=== PATIENT | female | born 1945 ===

== ENCOUNTER 2016-12-19 11:01 | Outpatient (CLI) | payer MEDICARE ==
--- NOTE | ~2016-12-19 | HEMODYNAMI ---
PATIENT:SHERIE LYNNE MEDICAL RECORD: [id number] : 47 LOCATION:[facility] D.2116 ADMISSION DATE: 12/19/16 Generatedon:12/20/201610:15 Patient name: SHERIE LYNNE Patient #: [id number] SSN: DO B: 1945 Date of study: 12/20/2016 Page: Of Hemodynamic Procedure Report Patient Data Patient Demographics Procedure consent was obtained First Name: SHERIE Gender: Female Last Name: GUERA : 1945 Patient #: [id number] Age: 71 year(s) Race: Unknown Additional ID: [id number] Contact details Address: [address] [place] [address] State: [place] City: [place] Zip code: [address] Admission Admission Data Admission Date: 12/19/2016 Admission Time: 12:47 Room #: D.2116 Lab Results Lab Result Date: 12/20/2016 Lab Result Time: 0:00 Biochemistry Name Units Result Min Max BUN mg/dl 7 --(*---)-- 7 18 Creatinine mg/dl 0.5 -*(----)-- 0.6 1.3 CBC Name Units Result Min Max Hemoglobin g/dl 13.3 -*(----)-- 13.5 17.5 Procedure Procedure Types Cath Procedure PCI Procedure Coronary Stent Initial Miscellaneous Procedures Moderate Sedation up to 15 minutes Procedure Description Procedure Date Procedure Date: 12/20/2016 Procedure Start Time: 10:00 Procedure End Time: 10:15 Procedure Staff Name Function Emile Lancaster MD Performing Physician Sara Agosto RT Scrub Ameya Elena RN Nurse Dario Hall RT Monitor Procedure Data Cath Procedure Fluoroscopy Diagnostic fluoroscopy Total fluoroscopy Time: 4.8 time: 4.8 min min Diagnostic fluoroscopy Total fluoroscopy dose: 313 dose: 313 mGy mGy Contrast Material Contrast Material Type Amount (ml) Isovue 300 86 Entry Location Entry Primary Successful Side Size Upsize Upsize Entry Closure Succes sful Closure Location (Fr) 1 (Fr) 2 (Fr) Remarks Device Remarks Femoral Left 6 Fr Exoseal artery Short Estimated blood loss: 10 ml Procedure Complications No complications Procedure Medications Medication Administration Route Dosage 0.9% NaCl I.V. 100 ml/hr Oxygen NC 2 l/min Heparin Flush Bag added to field 2 bags (1000units/500ml NS) Lidocaine 2% added to field 20 Versed I.V. 2 mg Fentanyl I.V. 50 mcg Fentanyl I.V. 50 mcg Heparin Bolus I.V. 4000 units Hemodynamics Rest HGB: 13.3 (g/dl) Heart Rate: 70 (bpm) Snapshots Pre Cath Intra NCS Post Cath Vital Signs Time Heart Resp SPO2 etCO2 NIBP (mmHg) Rhythm Pain Sedation Rate (ipm) (%) (mmHg) Status Level (bpm) 9:49:02 68 16 96 0 131/66(100) NSR 0 (11) 10(A) , No pain 9:53:42 69 19 96 0 121/62(88) NSR 0 (11) 10(A) , No pain 9:58:21 66 23 95 0 113/61(85) NSR 0 (11) 10(A) , No pain 10:03:02 64 16 96 0 112/58(86) NSR 0 (11) 10(A) , No pain 10:07:40 67 17 95 0 114/60(84) NSR 0 (11) 10(A) , No pain 10:12:21 70 13 95 0 117/62(86) NSR 0 (11) 10(A) , No pain Medications Time Medication Route Dose Verified Delivered Reason Notes Effectiveness by by 9:52:33 0.9% NaCl I.V. 100 Ameya Ameya Per physician ml/hr Ulices Elena RN RN 9:52:46 Oxygen NC 2 Ameya Ameya Per physician l/min Ulices Elena RN RN 9:53:00 Heparin Flush added 2 Ameya Ameya used for Bag to bags Ulices Elena procedure (1000units/500ml field KYARA SPARROW NS) 9:53:15 Lidocaine 2% added 20ml Ameya Ameya for local to vial Ulices Elena anesthetic field KYARA SPARROW 9:53:30 Versed I.V. 2 mg Ameya Ameya for sedation Ulices Elena RN, RN 9:55:32 Fentanyl I.V. 50 Ameya Ameya for sedation rosa Elena RN RN 10:00:50 Fentanyl I.V. 50 Ameya Ameya for sedation rosa Elena RN RN 10:03:44 Heparin Bolus I.V. 4000 Ameya Ameya for units Ulices Elena anticoagulation RN gas maker helper Log Time Note 9:25:32 Dario Hall RT(R) sent for patient. Start room use. 9:27:35 Time tracking: Regular hours 9:27:39 Plan of Care:Hemodynamics will remain stable., Cardiac rhythm will remain stable., Comfort level will be maintained., Respiratory function will remain adequate., Patient/ family verbilizes understanding of procedure., Procedure tolerated without complication., Recovers from procedure without complications.. 9:28:03 H&P Date Dictated: 12/19/2016 Within 30 days and on chart., H&P Addendum completed by physician on day of procedure. (MUST COMPLETE FOR ALL OUTPATIENTS). 9:29:34 Lab Result : Creatinine 0.5 mg/dl 9:29:34 Lab Result : BUN 7 mg/dl 9:29:34 Lab Result : Hemoglobin 13.3 g/dl 9:38:01 Patient received from Med II to CCL 1 Alert and oriented. Tansferred to table in Supine position. 9:38:03 Warm blankets applied, and frances hugger turned on for patient comfort. 9:38:03 Correct patient and procedure confirmed by team. 9:38:05 Signed procedure consent form obtained from patient. 9:38:06 ECG and BP/O2 sat monitors applied to patient. 9:48:10 Vital chart was started 9:48:12 Baseline sample Acquired. 9:48:15 Rhythm: sinus rhythm 9:48:16 Full Disclosure recording started 9:48:18 Pre-procedure instructions explained to patient. 9:48:19 Pre-op teaching completed and patient verbalized understanding. 9:48:23 Family in patients room. 9:48:24 Patient NPO since Midnight. 9:48:26 Is the patient allergic to Iodine/contrast media? No. 9:48:29 Is patient on blood thinner?Yes 9:48:32 ACC The patient was administered the following blood thiners within the last 24 hours: ACCPlavix 9:48:34 Patient diabetic? No. 9:49:17 Previous problem with sedation/anesthesia? No ? 9:49:20 Snore? Yes 9:49:23 Sleep apnea? No 9:49:24 Deviated septum? No 9:49:25 Opens mouth fully? Yes 9:50:35 Sticks out tongue? Yes 9:50:37 Airway obstruction? No ? 9:50:40 Dentures? No ? 9:50:51 Pre procedure: left dorsailis pedis pulse 1+ Palpable, but thready & weak; easily obliterated 9:51:02 Patient pain scale 0/10 ?. 9:51:11 IV patent on arrival in left forearm with 0.9% NaCl at [facility]. 9:51:13 Lab results completed and on chart. 9:51:18 Left groin area was prepped with chlora-prep and draped in sterile fashion 9:51:19 Alarms reviewed by R. N. 9:51:20 Sharps counted by scrub and verified by R.N. 9:51:22 --------ALL STOP TIME OUT------ 9:51:22 Final Timeout: patient, procedure, and site verified with staff and physician. All members of the team are in agreement. 9:51:24 Left groin site verified by team. 9:51:27 Physical assessment completed. ASA score P 2 - A patient with mild systemic disease as per Emile Lancaster MD. 9:51:29 Sedation plan: IV Moderate Sedation Versed, Fentanyl 9:52:33 0.9% NaCl 100 ml/hr I.V. was administered by Ameya Elena RN; Per physician; 9:52:46 Oxygen 2 l/min NC was administered by Ameya Elena RN; Per physician; 9:53:00 Heparin Flush Bag (1000units/500ml NS) 2 bags added to field was administered by Ameya Elena RN; used for procedure; 9:53:15 Lidocaine 2% 20ml vial added to field was administered by Ameya Elena RN; for local anesthetic; 9:53:27 Use device set Femoral PCI 9:53:28 Tegaderm 4 x 4 opened to sterile field. 9:53:28 Acist Manifold opened to sterile field. 9:53:30 Versed 2 mg I.V. was administered by Ameya Lorigan RN; for sedation; 9:53:30 Acist Syringe opened to sterile field. 9:53:30 Acist Hand Control opened to sterile field. 9:53:31 Bag Decanter opened to sterile field. 9:53:31 Medline Cath Pack opened to sterile field. 9:53:31 Terumo 6Fr Chelsea Sheath opened to sterile field. 9:53:32 St Rogers 260cm J .035 wire opened to sterile field. 9:53:32 Merit BasixCompak Inflation Kit opened to sterile field. 9:53:38 Durant Whisper J 300cm 0.014 guide wire opened to sterile field. 9:55:32 Fentanyl 50 mcg I.V. was administered by Ameya Elena RN; for sedation; 9:55:57 Cordis 6FR XB 3.5 guide catheter opened to sterile field. 10:00:00 Procedure started. 10:00:05 Local anesthetic to left femerol artery with Lidocaine 2% by Emile Lancaster MD.INITIAL ACCESS ONLY 10:00:50 Fentanyl 50 mcg I.V. was administered by Ameya Elena RN; for sedation; 10:01:21 A 6 Fr Short sheath was inserted into the Left Femoral artery 10:01:50 Study PCI Site: [facility] has 80% stenosis. 10:01:53 ACC Pre-intervention REBECCA Flow is 3. 10:02:00 6 Fr XB 3.5 guide catheter was inserted over the wire 10:02:38 Whisper wire advanced. 10:03:44 Wire advanced across lesion. 10:03:44 Heparin Bolus 4000 units I.V. was administered by Ameya Elena RN; for anticoagulation; 10:06:41 The Medtronic Integrity 2.25 X 14 stent was advanced then removed because of failure to cross lesion 10:08:17 Inflation number: 1 A Euphora 2.0 x 12 Balloon was prepped and advanced across the Dist CX, then inflated to 13 LOUIS for 0:10 (min:sec). 10:08:50 Multiple inflations made at 13 Atms. 10:09:20 Balloon removed over the wire. 10:10:01 Inflation Number: 2 A Medtronic Integrity 2.25 X 14 stent was prepped and advanced across the Dist CX. The stent was deployed at 21 LOUIS for 0:10 (min:sec). 10:10:40 Stent catheter was removed intact over wire. 10:10:42 Wire removed. 10:10:42 Guide catheter removed. 10:10:44 ACC Post-intervention REBECCA Flow is 3. 10:10:56 Cordis 6Fr Exoseal opened to sterile field. 10:11:05 Sheath removed intact; hemostasis achieved with Exoseal to the Left Femoral artery. 10:11:35 Procedure ended.(Physican Out) 10:12:44 Fluoroscopy time 04.80 minutes. 10:12:47 Fluoroscopy dose: 313 mGy 10:12:47 Flurop Dose total: 313 10:12:52 Contrast amount:Isovue 300 86ml. 10:12:53 Sharps counted by scrub and verified by R.N. 10:12:55 Insertion/operative site no bleeding no hematoma. 10:12:57 Post Procedure Pulses reassessed and unchanged 10:12:59 Post-procedure physical assessment completed. ASA score P 2 - A patient with mild systemic disease as per Emile Lancaster MD. 10:13:02 Post procedure rhythm: unchanged. 10:13:05 Estimated blood loss: 10 ml 10:13:07 Post procedure instruction explained to patient.Patient verbalizes understanding. 10:13:08 Patient needs reinforcement of post procedure teaching. 10:13:33 Procedure and supply charges have been captured, reviewed, submitted and are correct. 10:13:35 Procedure Complication : No complications 10:15:06 Vital chart was stopped 10:15:07 See physician's report for complete and final results. 10:15:09 Report given to PCU. 10:15:13 Patient transfered to PCU with Bed. 10:15:16 Procedure ended. 10:15:16 Full Disclosure recording stopped 10:15:18 End room use (Document Last) 10:15:18 End room use (Document Last) Intervention Summary Intervention Notes Time ActionType Lesion and Equipment Action# Pressure Duration Attributes Used 10:06:41 Discard Medtronic Stent Integrity 2.25 X 14 stent 10:08:17 Inflate Dist CX Euphora 1 13 00:10 balloon 2.0 x 12 Balloon 10:10:01 Place stent Dist CX Medtronic 2 21 00:10 Integrity 2.25 X 14 stent Device Usage Item Name Manufacture Quantity Catalog Hospital Part Current Minimal L ot# / Number Charge Number Stock Stock Serial# Code Tegade 4 1 1626 133441 [id number] [id number] 5 x 4 Acist Acist 1 70958 612393 533734 032276 5 Manifold [employer] Inc Acist Acist 1 29232 688101 214820 675511 20 Syringe Medical Systems Inc Acist Hand Acist 1 96455 995360 527186 201691 5 Control Medical Systems Inc Bag Microtek 1 2002S 632501 92761 378760 5 Decanter Medical Inc. Medline Cardinal 1 [id number] 491355 29773 527575 5 Cath Pack Health Terumo 6Fr Terumo 1 [id number] 513484 541428 276051 [address] Rogers 1 248494 920612 394859 926477 30 260cm J .035 wire Merit Merit 1 [id number] 570904 833349 213129 15 BasixCompak Medical Inflation Kit Durant Durant 1 [id number] 511054 424746 788163 5 Whisper J Vascular 300cm 0.014 guide wire Cordis 6FR Cardinal 1 [id number] 776264 113638 095261 2 XB 3.5 Health guide catheter Medtronic Medtronic 1 [id number] 394418 105248 1 0 [id number] Integrity 2.25 X 14 stent Euphora 2.0 Medtronic 1 [id number] 775339 564072 534785 5 2 [id number] x 12 Balloon Cordis 6Fr Cardinal 1 EX600 614907 417041 338854 10 [facility] [place] Interactive Signature Audit [place] Stage Time Signature Unsigned Intra-Procedure 12/20/2016 Dario Hall 10:15:35 AM RT(R) Signatures Monitor : Dario Hall RT Signature : Date : Time : [facility] [address] [place] [address]
--- NOTE | ~2016-12-19 | HEMODYNAMI ---
PATIENT:SHERIE LYNNE MEDICAL RECORD: [id number] : 47 LOCATION:D.ER ADMISSION DATE: 12/19/16 Generatedon:12/19/201612:41 Patient name: SHERIE LYNNE Patient #: [id number] SSN: DO B: 1945 Date of study: 12/19/2016 Page: Of Hemodynamic Procedure Report Patient Data Patient Demographics Procedure consent was obtained First Name: SHERIE Gender: Female Last Name: GUERA : 1945 Patient #: [id number] Age: 71 year(s) Race: Unknown Additional ID: [id number] Admission Admission Data Admission Date: 12/19/2016 Admission Time: 11:01 Procedure Procedure Types Cath Procedure Diagnostic Procedure C [facility] w/Coronaries FFR/IVUS Intra-Coronary IVUS Initial PCI Procedure Coronary Stent Initial Miscellaneous Procedures Moderate Sedation up to 15 minutes Procedure Description Procedure Date Procedure Date: 12/19/2016 Procedure Start Time: 12:17 Procedure End Time: 12:38 Procedure Staff Name Function Emile Lancaster MD Performing Physician Sara Agosto RT Scrub Ameya Elena RN Nurse Dario Hall RT Monitor Procedure Data Cath Procedure Fluoroscopy Diagnostic fluoroscopy Total fluoroscopy Time: 3.8 time: 3.8 min min Diagnostic fluoroscopy Total fluoroscopy dose: 486 dose: 486 mGy mGy Contrast Material Contrast Material Type Amount (ml) Isovue 300 85 Entry Location Entry Primary Successful Side Size Upsize Upsize Entry Closure Succes sful Closure Location (Fr) 1 (Fr) 2 (Fr) Remarks Device Remarks Femoral Right 5 Fr 6 Fr Exoseal artery Short Estimated blood loss: 10 ml Diagnostic catheters Device Type Used For End Catheter Placement Cordis 5Fr Pigtail Procedure Catheter (MP) Cordis 5Fr JL 4.0 Procedure Catheter (MP) Cordis 5Fr 3DRC Catheter Procedure (MP) Procedure Complications No complications Procedure Medications Medication Administration Route Dosage 0.9% NaCl I.V. 100 ml/hr Oxygen NC 2 l/min Heparin Flush Bag added to field 2 bags (1000units/500ml NS) Lidocaine 2% added to field 20 Versed I.V. 2 mg Fentanyl I.V. 100 mcg Versed I.V. 1 mg Heparin Bolus 4000 units Integrilin (Bolus I.V. 6.8 ml 2mg/ml) Plavix P.O. 600 mg Versed I.V. 1 mg Hemodynamics Rest Heart Rate: 81 (bpm) Pressure Samples Time Site Value (mmHg) Purpose Heart Use Rate(bpm) 12:29 AO 113/66(88) Snapshot 89 Snapshots Pre Cath Intra NCS Post Cath Vital Signs Time Heart Resp SPO2 etCO2 NIBP (mmHg) Rhythm Pain Sedation Rate (ipm) (%) (mmHg) Status Level (bpm) 12:11:45 87 24 99 0 139/69(119) NSR 0 (11) 10(A) , No pain 12:16:26 83 20 98 0 128/71(95) NSR 0 (11) 10(A) , No pain 12:21:04 86 23 98 0 115/67(90) NSR 0 (11) 10(A) , No pain 12:25:43 88 16 97 0 118/63(91) NSR 0 (11) 10(A) , No pain 12:30:21 83 16 98 0 118/64(90) NSR 0 (11) 10(A) , No pain 12:35:00 88 23 98 0 126/64(97) NSR 0 (11) 10(A) , No pain Medications Time Medication Route Dose Verified Delivered Reason Notes Effectiveness by by 12:09:58 0.9% NaCl I.V. 100 Ameya Ameya Per physician ml/hr Ulices Elena RN, RN 12:10:11 Oxygen NC 2 Ameya Ameya Per physician l/min Ulices Elena RN RN 12:10:28 Heparin Flush added 2 Ameya Ameya used for Bag to bags Ulices Elena procedure (1000units/500ml field KYARA SPARROW NS) 12:10:42 Lidocaine 2% added 20ml Ameya Ameya for local to vial Ulices Elena anesthetic field KYARA SPARROW 12:14:16 Versed I.V. 2 mg Ameya Ameya for sedation Ulices Elena RN, RN 12:14:27 Fentanyl I.V. 100 Ameya Ameya for sedation mcg Lorigan Lorigan RN RN 12:18:07 Versed I.V. 1 mg Ameya Ameya for sedation Ulices Elena RN RN 12:24:08 Heparin Bolus 4000 Ameya Ameya for units Ulices Elena anticoagulation RN RN 12:24:30 Integrilin I.V. 6.8 Ameya Ameya for (Bolus 2mg/ml) ml Ulices Elena antiplatelet RN RN therapy 12:33:26 Plavix P.O. 600 Ameya Ameya for mg Ulices Elena antiplatelet RN RN therapy 12:36:00 Versed I.V. 1 mg Ameya Ameya for sedation Ulices Elena RN metal refiner Log Time Note 11:50:48 Dario Hall RT(R) sent for patient. Start room use. 11:50:50 Time tracking: Regular hours 11:50:54 Plan of Care:Hemodynamics will remain stable., Cardiac rhythm will remain stable., Comfort level will be maintained., Respiratory function will remain adequate., Patient/ family verbilizes understanding of procedure., Procedure tolerated without complication., Recovers from procedure without complications.. 12:04:46 Patient received from ED to CCL 1 Alert and oriented. Tansferred to table in Supine position. 12:04:48 Warm blankets applied, and frances hugger turned on for patient comfort. 12:04:48 Correct patient and procedure confirmed by team. 12:04:50 Signed procedure consent form obtained from patient. 12:04:51 ECG and BP/O2 sat monitors applied to patient. 12:09:58 0.9% NaCl 100 ml/hr I.V. was administered by Ameya Elena RN; Per physician; 12:10:11 Oxygen 2 l/min NC was administered by Ameya Elena RN; Per physician; 12:10:28 Heparin Flush Bag (1000units/500ml NS) 2 bags added to field was administered by Ameya Elena RN; used for procedure; 12:10:42 Lidocaine 2% 20ml vial added to field was administered by Ameya Elena RN; for local anesthetic; 12:10:52 Vital chart was started 12:11:49 Rhythm: sinus rhythm 12:11:50 Full Disclosure recording started 12:11:54 H&P Date Dictated: 12/19/2016 ER History on chart.. 12:11:55 Pre-procedure instructions explained to patient. 12:11:55 Pre-op teaching completed and patient verbalized understanding. 12:11:57 Family in waiting room. 12:11:59 Patient NPO since Midnight. 12:12:00 Is the patient allergic to Iodine/contrast media? No. 12:12:09 Is patient on blood thinner?No 12:12:10 Patient diabetic? No. 12:12:19 Previous problem with sedation/anesthesia? No ? 12:12:20 Snore? Yes 12:12:45 Sleep apnea? No 12:12:46 Deviated septum? No 12:12:50 Opens mouth fully? Yes 12:12:51 Sticks out tongue? Yes 12:12:55 Airway obstruction? No ? 12:13:01 Dentures? No ? 12:13:10 Pre procedure: right dorsailis pedis pulse 1+ Palpable, but thready & weak; easily obliterated 12:13:14 Patient pain scale 0/10 ?. 12:13:35 IV patent on arrival in left forearm with 0.9% NaCl at [facility]. 12:13:37 Lab results completed and on chart. 12:13:40 Right groin area was prepped with chlora-prep and draped in sterile fashion 12:13:42 Alarms reviewed by R. N. 12:13:42 Sharps counted by scrub and verified by R.N. 12:13:43 --------ALL STOP TIME OUT------ 12:13:43 Final Timeout: patient, procedure, and site verified with staff and physician. All members of the team are in agreement. 12:13:46 Right groin site verified by team. 12:13:50 Physical assessment completed. ASA score P 2 - A patient with mild systemic disease as per Emile Lancaster MD. 12:13:54 Sedation plan: IV Moderate Sedation Versed, Fentanyl 12:14:16 Versed 2 mg I.V. was administered by Ameya Elena RN; for sedation; 12:14:27 Fentanyl 100 mcg I.V. was administered by Ameya Elena RN; for sedation; 12:16:45 Use device set Femoral Dx 12:16:47 Tegaderm 4 x 4 opened to sterile field. 12:16:48 Acist Hand Control opened to sterile field. 12:16:48 Acist Manifold opened to sterile field. 12:16:50 Acist Syringe opened to sterile field. 12:16:50 Bag Decanter opened to sterile field. 12:16:51 Medline Cath Pack opened to sterile field. 12:16:51 Terumo 5Fr Plessis Sheath opened to sterile field. 12:16:51 St Rogers 260cm J .035 wire opened to sterile field. 12:16:53 Diagnostic Infinity 5Fr Multipack catheter opened to sterile field. 12:16:59 Zero performed for pressure channel P1 12:17:03 Zero performed for pressure channel P1 12:17:10 Baseline sample Acquired. 12:17:25 Procedure started. 12:17:31 Local anesthetic to right femoral artery with Lidocaine 2% by Emile Lancaster MD.INITIAL ACCESS ONLY 12:18:07 Versed 1 mg I.V. was administered by Ameya Elena RN; for sedation; 12:18:12 A 5 Fr sheath was inserted into the Right Femoral artery 12:18:21 A Cordis 5Fr Pigtail Catheter (MP) was advanced over the wire and used for Procedure. 12:18:46 LV angiography performed. 12:18:48 LV gram done using CALABRESE 12:18:53 EF : 70 % 12:18:59 Injector settings: Ml/sec: 10, Volume: 20, 12:19:00 Catheter removed. 12:19:05 A Cordis 5Fr JL 4.0 Catheter (MP) was advanced over the wire and used for Procedure. 12:19:58 LCA angiography performed. 12:20:03 Merit BasixCompak Inflation Kit opened to sterile field. 12:20:03 Terumo 6Fr Plessis Sheath opened to sterile field. 12:20:04 Durant Whisper J 300cm 0.014 guide wire opened to sterile field. 12:20:35 Catheter removed. 12:20:38 A Cordis 5Fr 3DRC Catheter (MP) was advanced over the wire and used for Procedure. 12:21:05 RCA angiography performed. 12:21:07 Catheter removed. 12:21:13 Cordis 6FR XBLAD 3.5 guide catheter opened to sterile field. 12:21:27 Pierson [place] Eagleye IVUS Catheter opened to sterile field. 12:21:35 Sheath upsized to a 6 Fr Short. 12:21:46 6 Fr XBLAD 3.5 guide catheter was inserted over the wire 12:23:37 Whisper wire advanced. 12:24:01 Wire advanced across lesion. 12:24:08 Heparin Bolus 4000 units was administered by Ameya Elena RN; for anticoagulation; 12::08 IVUS catheter advanced over wire. 12::30 Integrilin (Bolus 2mg/ml) 6.8 ml I.V. was administered by Ameya Elena RN; for antiplatelet therapy; 12:24:56 IVUS pass to LAD lesion performed. 12::31 IVUS catheter removed over wire. 12::35 Inflation Number: 1 A Brand Embassytronic Integrity 3.5 X 12 stent was prepped and advanced across the Prox LAD. The stent was deployed at 11 LOUIS for 0:10 (min:sec). 12:30:20 Inflation number: 2 The stent balloon was then re-inflated across the Prox LAD to 3 LOUIS for 0:10 (min:sec). 12::37 Stent catheter was removed intact over wire. 12::38 Wire removed. 12:30:40 Guide catheter removed. 12::48 Sheath removed intact; hemostasis achieved with Exoseal to the Right Femoral artery. 12:31: Cordis 6Fr Exoseal opened to sterile field. 12:31:27 Procedure ended.(Physican Out) 12::38 Fluoroscopy time 03.80 minutes. 12:: Flurop Dose total: 486 12:: Fluoroscopy dose: 486 mGy 12::46 Contrast amount:Isovue 300 85ml. 12:33:26 Plavix 600 mg P.O. was administered by Ameya Elena RN; for antiplatelet therapy; 12:36:00 Versed 1 mg I.V. was administered by Ameya Elena RN; for sedation; 12:36:28 Sharps counted by scrub and verified by R.N. 12:36:31 Insertion/operative site no bleeding no hematoma. 12:36:34 Post-op/insertion site Right Femoral artery dressed using a 4 x 4 and Tegaderm. 12:36:36 Post Procedure Pulses reassessed and unchanged 12:36:39 Post-procedure physical assessment completed. ASA score P 2 - A patient with mild systemic disease as per Emile Lancaster MD. 12:36:42 Post procedure rhythm: unchanged. 12:36:45 Estimated blood loss: 10 ml 12:36:55 Post procedure instruction explained to patient.Patient verbalizes understanding. 12:36:56 Patient needs reinforcement of post procedure teaching. 12:37:15 Procedure type changed to Cath procedure, Diagnostic procedure, LHC, LHC w/Coronaries, FFR/IVUS, Intra-Coronary IVUS Initial, PCI procedure, Coronary Stent Initial, Miscellaneous Procedures, Moderate Sedation up to 15 minutes 12:37:19 Procedure and supply charges have been captured, reviewed, submitted and are correct. 12:37:24 Procedure Complication : No complications 12:38:00 Vital chart was stopped 12:38:01 See physician's report for complete and final results. 12:38:08 Report given to PCU. 12:38:12 Patient transfered to PCU with Bed. 12:38:14 Procedure ended. 12:38:14 Full Disclosure recording stopped 12:38:33 End room use (Document Last) Intervention Summary Intervention Notes Time ActionType Lesion and Equipment Action# Pressure Duration Attributes Used 12:28:35 Place stent Prox LAD Medtronic 1 11 00:10 Integrity 3.5 X 12 stent 12:30:20 Reinflate Prox LAD Medtronic 2 3 00:10 stent Integrity balloon 3.5 X 12 stent Device Usage Item Name Manufacture Quantity Catalog Hospital Part Current Minimal L ot# / Number Charge Number Stock Stock Serial# Code Tegaderm 4 3M 1 [id number] 207140 5 x 4 Acist Hand Acist 1 13626 592152 675997 355897 5 Control Medical Systems Inc Acist Acist 1 50899 673389 099090 747509 5 Manifold Medical Systems Inc Acist Acist 1 29348 627195 212871 751069 20 Syringe Medical Systems Inc Bag Microtek 1 2002S 075120 02043 310764 5 DecAlkeus Pharm[employer] Medical Inc. Medline Cardinal 1 [id number] 538041 89465 750173 5 Cath Pack Health Terumo 5Fr Terumo 1 [id number] 133245 732726 531678 [address] Rogers 1 175456 095451 594955 747405 30 260cm J .035 wire Diagnostic Cardinal 1 [id number] 458819 00897 895346 30 Infinity Health 5Fr Multipack catheter Cordis 5Fr Cardinal 1 297287 5 Pigtail Health Catheter (MP) Cordis 5Fr Cardinal 1 042019 5 JL 4.0 Health Catheter (MP) Merit Merit 1 [id number] 051793 400870 407169 15 BasixCompak Medical Inflation Kit Terumo 6Fr Terumo 1 OFI961 083714 399978 922396 40 Plessis Sheath Durant Durant 1 [id number] 171139 151041 978517 5 Whisper J Vascular 300cm 0.014 guide wire Cordis 5Fr Cardinal 1 833420 5 3DRC Health Catheter (MP) Cordis 6FR Cardinal 1 [id number] 357765 520110 106931 10 XBLAD 3.5 Health guide catheter Pierson Pierson 1 [id number] 671312 314202 165089 8 [place] Eagleye IVUS Catheter Medtronic Medtronic 1 [id number] 823696 645591 1 0 [id number] Integrity 3.5 X 12 stent Cordis 6Fr Cardinal 1 EX600 100343 121834 982414 10 [facility] [employer]o [employer] Butcher Signature Audit [place] Stage Time Signature Unsigned Intra-Procedure 12/19/2016 Dario Hall 12:41:20 PM RT(R) Signatures Monitor : Dario Hall RT Signature : Date : Time : [facility] [address] [facility] [place] [address]
[2016-12-19 11:24] LABS: BASOPHILS 0.2 % (0-2); EOSINOPHILS 0.6 % (0-7); HEMATOCRIT 38.8 % (36.0-48.0); HEMOGLOBIN 13.3 g/dL (12-16); IMMATURE GRANULOCYTES 0.2 % (0-5); LYMPHOCYTES 37.4 % (15-50); MCH 30.5 pg (26.0-34.0); MCHC 34.3 g/dL (31.0-37.0); MONOCYTES 5.7 % (2-11); NEUTROPHILS 55.9 % (40-80); PLATELET COUNT 217 10x3/uL (130-400); RBC 4.36 10x6/uL (4.00-5.40); WBC 8.1 10x3/uL (4.8-10.8)
[2016-12-19 11:46] LABS: ALBUMIN 3.9 g/dL (3.4-5.0); ALKALINE PHOSPHATASE 61 U/L (46-116); ALT (SGPT) 21 U/L (10-68); BILIRUBIN - TOTAL 0.52 mg/dL (0.2-1.3); CALC OSMOLALITY 269 mosm/kg (275-300); CALCIUM 9.2 mg/dL (8.5-10.1); CHLORIDE - SERUM 100 mmol/L (98-107); CREATININE - SERUM 0.5 mg/dL (0.6-1.3); GLUCOSE 96 mg/dL (74-106); POTASSIUM - SERUM 4.9 mmol/L (3.5-5.1); PROTEIN - SERUM 8.3 g/dL (6.4-8.2); SODIUM 136 mmol/L (136-145); UREA NITROGEN 7 mg/dL (7-18); eGFR NON AFRICAN AMERICAN > 90 mL/min (90-120)
[2016-12-19 11:57] LABS: CHOL - HDL RATIO 2.5 ratio (2.3-4.1); CHOLESTEROL, TOTAL 178 mg/dL (0-200); CKMB 1.3 U/L (0.0-3.6); CREATINE KINASE 190 UL (21-215); HDL CHOLESTEROL 70 mg/dL (32-96); LDL CHOLESTEROL 81 mg/dL (0-100); LDL-HDL RATIO 1.2 ratio (1.5-3.5); TRIGLYCERIDE 137 mg/dL (30-200)
[2016-12-19 12:03] LABS: TROPONIN-I < 0.017 ng/mL (0.000-0.060)
--- NOTE | 2016-12-19 13:21 | NUR ---
TRANSFER FROM [facility]. VS WNL. RIGHT GROIN STABLE WITHOUT BLEEDING OR HEMATOMA NOTED. WILL MONITOR.
[2016-12-19] MEDS ORDERED: LOTREL 10/20 CA1 CAP PO (13:50)
[2016-12-19] MEDS ORDERED: NEXIUM40 MG PO (13:50)
[2016-12-19] MEDS ORDERED: NIASPAN500 MG PO (13:52)
[2016-12-19] MEDS ORDERED: OMEPRAZOLE20 M1 PO (13:52)
[2016-12-19 13:54] VITALS: BP 126/71; BMI 26.0
--- NOTE | 2016-12-19 13:59 | NUR ---
BED REST UP. GROIN STABLE.
[2016-12-19 16:00] VITALS: BP 120/65
--- NOTE | 2016-12-19 17:00 | NUR ---
BED REST UP. GROIN STABLE.
--- NOTE | 2016-12-19 20:15 | NUR ---
REC'D AWAKE ON BEDSIDE ROUNDS, VOICING NO COMPLAINTS. INITIAL ASSESSMENT JUST COMPL AND RECORDED PER FLOW SHEET, ALL WNL. LEFT WRIST PIV, PATENT, SALINE LOCKED, SITE CLEAR OF REDNESS OR EDEMA. R GROIN WITH DRSG PATENT, NO SIGNS OF BLEEDING OR BRUISING. PPP. WILL CONT TO MONITOR.
[2016-12-19 20:37] VITALS: BP 132/72
[2016-12-19 23:45] VITALS: BP 136/68
--- NOTE | 2016-12-20 00:39 | NUR ---
NO CHANGES IN INITIAL ASSESSMENT. IS LYING QUIETLY AT PRESENT. DENIES NEEDS OF PAIN, NO SIGNS OF DISTRESS OR DISCOMFORT. WILL CONT TO MONITOR.
[2016-12-20 03:53] VITALS: BP 150/70
--- NOTE | 2016-12-20 06:14 | NUR ---
HAS RESTED THROUGHOUT NIGHT WITHOUT C/O'S OF PAIN, UP AROUND 4AM TO TAKE A HIBICLENS BATH SINCE SHE WAS AWAKE. TO HAVE ANOTHER CATH THIS A.M. SO WAS PREPPING. PIV REMAINS PATENT, WILL CONT WITH CURRENT PLAN OF CARE.
[2016-12-20 08:00] VITALS: BP 125/71
--- NOTE | 2016-12-20 09:29 | NUR ---
PRE-OPS GIVEN. LEAVING FOR REGULATORY TECHNICIAN BY BED.
[2016-12-20] MEDS ORDERED: PLAVIX75 MG PO (10:37)
--- NOTE | 2016-12-20 10:38 | NUR ---
BACK FROM [facility] RN. VS WNL. LEFT GROIN STABLE WITHOUT BLEEDING OR HEMATOMA NOTED. WILL MONITOR.
--- NOTE | 2016-12-20 11:00 | NUR ---
FOR DISCHARGE: PATIENT REQUESTING FLU SHOT WHEN ASKED. ORDERED. PER PATIENT REQUEST, PLAVIX 75 MG #30 1 DAILY WITH 1 REFILL CALLED TO [facility] IN [place] ([phone]). SPOKE WITH ENEDELIA PHARMACIST.
[2016-12-20 12:00] VITALS: BP 125/64
--- NOTE | 2016-12-20 15:13 | NUR ---
BED REST UP. GROIN STABLE. IV AND TELEMETRY DCD. DC PLANS GIVEN. UNSTANDING VOICED. ESCORTED TO CAR BY W/C.
--- NOTE | 2017-01-05 16:56 | DS ---
PATIENT:SHERIE LYNNE :47 MEDICAL RECORD: [id number] DISCHARGE SUMMARY ADMISSION DATE: 12/19/16 DISCHARGE DATE: 12/20/16 DATE OF SERVICE: 12/20/2016 DIAGNOSES: 1. Angina. 2. Coronary artery disease. 3. PTCA and stent of left circumflex and RCA this admission. HOSPITAL COURSE: Ms. Lynne presents with unstable angina. Found to have 2-vessel coronary artery disease of the left circumflex and RCA. Underwent successful PTCA and stent of above territories. Had an uneventful postoperative course. Discharged with the addition of aspirin and Plavix to her medical regimen. Follow up with [facility] in 1 month. TRANSINT:[id number] Voice Confirmation ID: [id number] DOCUMENT ID: [id number] BEL LEA MD at 1656 CC: [id number] DICTATION DATE: 12/20/16 1015 PLASTERING CONTRACTOR: 12/20/16 1439 DEP CLI 12/20/16 [id number] [place] [address]
--- NOTE | 2017-01-05 16:56 | OP ---
PATIENT NAME: SHERIE LYNNE MEDICAL RECORD: [id number] :47 LOCATION:D.OPS ADMISSION DATE: SURGEON: BEL LEA MD DATE OF OPERATION: 12/19/2016 PROCEDURES: 1. PTCA stent to LAD. 2. Left heart catheterization. 3. Selective coronary angiography. 4. Intravascular ultrasound. 5. Left ventriculogram. INDICATION: Angina and coronary artery disease. PROCEDURE IN DETAIL: After informed consent was obtained and after detailed explanation of risks, benefits as well as alternative therapies, the patient elected to proceed with angiogram and angioplasty. The right femoral area was prepped and draped in normal sterile fashion. The right femoral artery was cannulated via modified Seldinger technique with placement of 6-Bangladeshi sheath. All catheters exchanged through this sheath. FINDINGS: The left ventriculogram was performed in standard 30-degree CALABRESE view, reveals good cardiac wall motion throughout all segments. Overall ejection fraction 65% to 70%. SELECTIVE CORONARY ANGIOGRAPHY: 1. Left main showed no significant angiographic disease. 2. Left anterior descending has a 75% stenosis in the mid vessel confirmed by intravascular ultrasound. 3. Left circumflex is a dominant vessel with an 80% to 90% stenosis in the distal vessel. 4. Right coronary is small, nondominant. PTCA STENT OF THE LAD: The stent used is a 3.5 x 12 mm Integrity. Result was 0% residual stenosis. OVERALL IMPRESSION: Successful percutaneous transluminal coronary angioplasty stent of the left anterior descending going from 75% initial stenosis to 0% residual stenosis. PLAN: PTCA stent of the left circumflex in the near future. TRANSINT:[id number] Voice Confirmation ID: [id number] DOCUMENT ID: [id number] BEL LEA MD at 1656 CC: [id number] DICTATION DATE: 12/19/16 1234 CARROTING MACHINE OPERATOR: 12/19/16 1346 DEP CLI 12/20/16 [id number] [place] [address]
--- NOTE | 2017-01-05 16:56 | CN ---
PATIENT NAME:SHERIE LYNNE MEDICAL RECORD: [id number] : 47 LOCATION:D.OPS ADMIT DATE: ACCOUNT: [id number] CONSULTING PHYSICIAN: BEL LEA MD REFERRING PHYSICIAN: ANJEL RADER MD DATE OF CONSULTATION: 12/19/2016 ADMITTING DIAGNOSES: 1. Angina. 2. Hypertension. 3. GERD. HISTORY OF PRESENT ILLNESS: Mrs. Lynne presents with increasing episodes of chest pain and chest discomfort. Initially, she was attributing this to her GERD; however, the chest pain has become more cardiac like in nature. She presented to Dr. Fallon's office with this with increasing episodes of chest pain. She was made an appointment to see myself as a new patient next week; however, she continues to have the episodes of chest pain, they have worsened. They are now associated with shortness of breath, fatigue, diaphoresis. She presents to the Emergency Room with this. She has no acute changes on EKG. She continues to have the episodic chest discomfort. PHYSICAL EXAMINATION: GENERAL APPEARANCE: Well-nourished, well-developed, appears stated age. Level of distress, comfortable. PSYCHIATRIC: Mental status, alert, normal affect. Orientation, oriented to time, place and person. EYES: Lids and conjunctiva, noninjected. No discharge, no pallor. ENT: Lips, teeth, gums, normal dentition. Oropharynx, no cyanosis, no pallor. NECK: Carotid arteries, bilateral normal upstroke, no bruits, no thrills. JUGULAR VEINS: No jugular venous pressure or distention. CERVICAL LYMPH NODES: Nontender, nonenlarged. THYROID: Not enlarged. Nontender. No nodules. LUNGS: Respiratory effort, unlabored. CHEST: Normal curvature. No thoracic deformity. No chest wall tenderness. Percussion, resonant. Auscultation, clear. No wheezes, no rales, no rhonchi. CARDIOVASCULAR: Precordial exam, nondisplaced. No heaves or pericardial thrills. Rate and rhythm, regular. Heart sounds, normal S1, normal S2. No S3, no gallop, no rub. Systolic murmur, not heard. Diastolic murmur, not heard. EXTREMITIES: No cyanosis, no edema. Peripheral pulses, full and equal in all extremities, except as noted. No bruits appreciated. ABDOMEN: Soft, nondistended. Normal aorta. No bruit. Nontender. No masses. Liver, nontender, no hepatomegaly. Spleen, nontender, no splenomegaly. MUSCULOSKELETAL: No joint tenderness. No joint swelling. No erythema. NEUROLOGICAL: Normal gait, normal strength, normal tone. SKIN: Warm and dry. REVIEW OF SYSTEMS: The patient reports easy bruising but reports no swollen glands. The patient reports no fever, no night sweats, no significant weight gain, no significant weight loss. No significant exercise tolerance. The patient reports no dry eyes, no irritation, no vision change. Patient reports no difficulty hearing and no ear pain. Patient reports no frequent nose bleeds or nose and sinus problems. Patient reports on arm pain on exertion. No shortness of breath while lying down. No history of heart murmur. Patient reports no cough, no wheezing or coughing up blood. Patient reports no CONSULT REPORT [id number] ELEAZAR LYNNELYN abdominal pain, no vomiting. Normal appetite. No diarrhea and not vomiting blood. No nausea and no constipation. Patient reports no incontinence. No difficulty urinating. No hematuria. No increased frequency. Patient reports no muscle aches. No weakness, no arthralgias, no back pain. No swelling of the extremities. Patient reports no abnormal mole, no jaundice, no rashes. Reports no loss of consciousness. No weakness and no numbness. No seizures, dizziness, or headaches. The patient reports no depression, no sleep disturbance, feeling safe in a relationship and no alcohol abuse. Patient reports on fatigue. Reports no runny nose or sinus pressure. No itching, no hives, and no frequent sneezing. OVERALL IMPRESSION: Chest discomfort in an escalating unstable fashion. We will proceed with coronary angiography. Further care depends upon findings of the angiography. TRANSINT:[id number] Voice Confirmation ID: [id number] DOCUMENT ID: [id number] BEL LEA MD at 1656 CC: [id number] DICTATION DATE: 12/19/16 1145 COSMETOLOGY EDUCATOR: 12/19/16 1205 DEP CLI 12/20/16 [id number] [place] [address]
--- NOTE | 2017-01-05 16:56 | OP ---
PATIENT NAME: SHERIE LYNNE MEDICAL RECORD: [id number] :47 LOCATION:VERENA ADMISSION DATE: SURGEON: BEL LEA MD DATE OF OPERATION: 12/20/2016 PROCEDURES: 1. PTCA stent left circumflex. 2. Selective coronary angiography. INDICATION: Angina and coronary artery disease. PROCEDURE IN DETAIL: After informed consent was obtained and after a detailed explanation of the risks, benefits as well as alternative therapies, the patient elected to proceed with angiogram and angioplasty. The right femoral area was prepped and draped in normal sterile fashion. The right femoral artery was cannulated via modified Seldinger technique with placement of 6-Latvian sheath. All catheters exchanged through this sheath. FINDINGS: The left circumflex has a 90% to 95% stenosis. This was addressed with a 2.25 x 14 mm Integrity stent. Result was 0% residual stenosis. OVERALL IMPRESSION: Successful percutaneous transluminal coronary angioplasty stent of the left circumflex going from 90% to 95% initial stenosis to 0% residual. TRANSINT:[id number] Voice Confirmation ID: [id number] DOCUMENT ID: [id number] BEL LEA MD at 1656 CC: [id number] DICTATION DATE: 12/20/16 1016 PANEL MACHINE TENDER: 12/20/16 1043 [facility] CLI 12/20/16 [id number] [place] [address]
== END 2016-12-20 15:29 | disposition home or self-care (01) ==
LOC: OBSVTIME → D.M2 11:01 → D.OPS 11:01 → D.ER 11:01 → D.M2 12:46 → D.ER 12:46 → D.M2 12:47 → OBSVTIME 12:47 → D.OPS 12:47 → D.M2 12-20 15:29
PROVIDERS: Emergency Medicine
DX: I25.119 Atherosclerotic heart disease of native coronary artery with unspecified angina pectoris (principal); K21.9 Gastro-esophageal reflux disease without esophagitis; I10 Essential (primary) hypertension

== ENCOUNTER 2018-01-04 09:48 | Outpatient (CLI) | payer MEDICARE ==
[~2018-01-04] VITALS: Ht 167.6 cm; Wt 72.7 kg
--- NOTE | ~2018-01-04 | OP ---
PATIENT NAME: SHERIE LYNNE MEDICAL RECORD: [id number] :47 LOCATION:D.CAT ADMISSION DATE: SURGEON: BEL LEA MD DATE OF OPERATION: 01/04/2018 PROCEDURES: 1. PTCA stent left circumflex. 2. Intravascular ultrasound of left circumflex. 3. Intravascular ultrasound LAD. 4. Left heart catheterization. 5. Selective coronary angiography. 6. Left ventriculogram. INDICATION: Angina and coronary artery disease. PROCEDURE IN DETAIL: After informed consent was obtained and after a detailed description of the risks, benefits as well as alternative therapies, the patient elected to proceed with angiogram and angioplasty. The right femoral area was prepped and draped in normal sterile fashion. Right femoral artery was cannulated via modified Seldinger technique with placement of 6-Ukrainian sheath. All catheters exchanged through this sheath. FINDINGS: Left ventriculogram was performed in standard 30-degree CALABRESE view, reveals good cardiac wall motion throughout all segments. Overall ejection fraction estimated 55%. SELECTIVE CORONARY ANGIOGRAPHY: 1. Left main is with no significant angiographic disease. 2. Left anterior descending has a previously placed stent. Intravascular ultrasound reveals that this is widely patent. 3. The left circumflex has a greater than 70% stenosis in the mid vessel confirmed by intravascular ultrasound. 4. The right coronary artery has mild irregularities, but no flow-limiting stenosis. PTCA STENT OF THE LEFT CIRCUMFLEX: The stent used was a 4.0 x 18 mm Integrity. Result was 0% residual stenosis. OVERALL IMPRESSION: Successful percutaneous transluminal coronary angioplasty stent of the left circumflex going from greater than 70% initial stenosis to 0% residual. TRANSINT:[id number] Voice Confirmation ID: [id number] DOCUMENT ID: [id number] BEL LEA MD at 1034 CC: [id number] DICTATION DATE: 01/04/18 1440 PAINT STRIPPER: 01/04/18 1452 [facility] [address] [id number]
--- NOTE | ~2018-01-04 | HEMODYNAMI ---
PATIENT:SHERIE LYNNE MEDICAL RECORD: [id number] : 47 LOCATION:[facility]SE [facility] ADMISSION DATE: 01/04/18 Generatedon:01/04/201814:41 Patient name: SHERIE LYNNE Patient #: [id number] SSN: DO B: 1945 Date of study: 01/04/2018 Page: Of Hemodynamic Procedure Report Patient Data Patient Demographics Procedure consent was obtained First Name: SHERIE Gender: Female Last Name: GUERA : 1945 Patient #: [id number] Age: 72 year(s) Race: Unknown Additional ID: [id number] Contact details Address: [address] [place] [address] State: [place] City: [place] Zip code: [address] Past Medical History Allergies: No known allergies Admission Admission Data Admission Date: 01/04/2018 Admission Time: 9:48 Admit Source: Other Lab Results Lab Result Date: 01/04/2018 Lab Result Time: 10:40 Biochemistry Name Units Result Min Max BUN mg/dl 12 --(-*--)-- 7 18 Creatinine mg/dl 0.6 --(*---)-- 0.6 1.3 CBC Name Units Result Min Max Hematocrit % 36.6 *-(----)-- 42 54 Hemoglobin g/dl 12.4 *-(----)-- 13.5 17.5 Procedure Procedure Types Cath Procedure Diagnostic Procedure [facility] w/Coronaries FFR/IVUS Intra-Coronary IVUS Initial Intra-Coronary IVUS Additional PCI Procedure Coronary Stent Coronary Stent Initial Procedure Description Procedure Date Procedure Date: 01/04/2018 Procedure Start Time: 14:19 Procedure End Time: 14:40 Procedure Staff Name Function Emile Lancaster MD Performing Physician Erick Whitaker RT Monitor Sara Agosto RT Scrub Ellie Salazar RN Nurse Procedure Data Cath Procedure Fluoroscopy Diagnostic fluoroscopy Total fluoroscopy Time: 2.7 time: 2.7 min min Diagnostic fluoroscopy Total fluoroscopy dose: 373 dose: 373 mGy mGy Contrast Material Contrast Material Type Amount (ml) Isovue 300 66 Entry Location Entry Primary Successful Side Size Upsize Upsize Entry Closure Succes sful Closure Location (Fr) 1 (Fr) 2 (Fr) Remarks Device Remarks Femoral Right 5 Fr 6 Fr Exoseal artery Short Estimated blood loss: 10 ml Diagnostic catheters Device Type Used For End Catheter Placement MULTIPACK Pigtail 5 Fr Procedure catheter MULTIPACK JL 4.0 5Fr Procedure catheter MULTIPACK 3DRC 5Fr Procedure catheter Procedure Complications No complications Procedure Medications Medication Administration Route Dosage 0.9% NaCl I.V. 100 ml/hr Oxygen etCO2 Nasal cannula 2 l/min Lidocaine 2% added to field 20 Heparin Flush Bag added to field 2 bags (1000units/500ml NS) Versed I.V. 2 mg Fentanyl I.V. 50 mcg Versed I.V. 2 mg Fentanyl I.V. 50 mcg Heparin Bolus I.V. 4000 units Integrilin (Bolus 6.8 ml 2mg/ml) Plavix P.O. 600 mg Hemodynamics Rest HGB: 12.4 (g/dl) Heart Rate: 63 (bpm) Snapshots Pre Cath Intra NCS Post Cath Vital Signs Time Heart Resp SPO2 etCO2 NIBP Rhythm Pain Sedation Rate (ipm) (%) (mmHg) (mmHg) Status Level (bpm) 14:06:12 76 15 96 27 117/67(95) NSR 0 (11) 10(A) , No pain 14:10:26 59 16 96 25.6 99/53(76) NSR 0 (11) 10(A) , No pain 14:14:40 60 17 96 26.3 100/53(81) NSR 0 (11) 10(A) , No pain 14:18:52 57 15 97 27.8 100/50(77) NSR 0 (11) 10(A) , No pain 14:23:08 61 19 96 28 103/49(81) NSR 0 (11) 9(A) , No pain 14:27:24 62 16 96 28 98/47(74) NSR 0 (11) 9(A) , No pain 14:31:36 66 17 97 29 100/55(76) NSR 0 (11) 9(A) , No pain 14:35:50 63 21 96 30 112/53(88) NSR 0 (11) 10(A) , No pain 14:39:49 0 No Cuff NSR 0 (11) 10(A) , No pain Medications Time Medication Route Dose Verified Delivered Reason Notes Effectiveness by by 14:11:28 0.9% NaCl I.V. 100 Emile Ellie used for ml/hr Tonny Salazar customer sales service manager 14:11:35 Oxygen etCO2 2 Emile Ellie used for Nasal l/min Tonny Salazar procedure cannula RN 14:11:40 Lidocaine 2% added 20ml Emile Emile for local to vial Tonny Lancaster MD anesthetic field 14:11:47 Heparin Flush added 2 Emile Emile used for Bag to bags Tonny Lancaster MD procedure (1000units/500ml field NS) 14:15:46 Versed I.V. 2 mg Emile Ellie for sedation Tonny Salazar RN 14:15:55 Fentanyl I.V. 50 Emile Fallyla for sedation mcg Tonny Salazar RN 14:20:22 Versed I.V. 2 mg Emile Fallyla for sedation Tonny Salazar RN 14:20:27 Fentanyl I.V. 50 Emile Ellie for sedation mcg Tonny Salazar RN 14:23:44 Heparin Bolus I.V. 4000 Emile Fallyla for verif ied units Tonny Salazar anticoagulation with Dr. KYARA Lancaster 14:25:07 Integrilin 6.8 Emile Ellie for waste d (Bolus 2mg/ml) ml Tonny Salazar anticoagulation 3.2 mL RN 14:28:12 Plavix P.O. 600 Emile Argueta for mg Tonny Salazar antiplatelet RN therapy Procedure Log Time Note 13:45:48 Diagnostic Cath status Elective 13:45:52 Ellie Salazar RN sent for patient. Start room use. 13:54:02 Informed consent obtained and on chart 13:54:05 Admit Source: Other 13:54:57 Time tracking: Regular hours (M-F 7:00 - 5:00) 13:55:00 Plan of Care:Hemodynamics will remain stable., Cardiac rhythm will remain stable., Comfort level will be maintained., Respiratory function will remain adequate., Patient/ family verbilizes understanding of procedure., Procedure tolerated without complication., Recovers from procedure without complications.. 13:55:08 H&P Date Dictated: 01/01/2018 Within 30 days and on chart., H&P Addendum completed by physician on day of procedure. (MUST COMPLETE FOR ALL OUTPATIENTS). 13:58:27 Patient received from Pre/Post Procedure Room to CCL 1 Alert and oriented. Tansferred to table in Supine position. 13:58:29 Warm blankets applied, and frances hugger turned on for patient comfort. 13:58:29 Correct patient and procedure confirmed by team. 13:58:30 ECG and BP/O2 sat monitors applied to patient. 13:58:33 Pre-procedure instructions explained to patient. 13:58:34 Pre-op teaching completed and patient verbalized understanding. 13:58:35 Family in waiting room. 13:58:37 Patient NPO since Midnight. 13:58:44 Patient allergic to No known allergies 13:59:15 Lab Result : Creatinine 0.6 mg/dl 13:59:15 Lab Result : BUN 12 mg/dl 13:59:15 Lab Result : Hematocrit 36.6 % 13:59:15 Lab Result : Hemoglobin 12.4 g/dl 13:59:17 Lab results completed and on chart. 14:05:04 Vital chart was started 14:09:32 Baseline sample Acquired. 14:09:37 Rhythm: sinus rhythm 14:09:39 Full Disclosure recording started 14:09:41 Is the patient allergic to Iodine/contrast media? No. 14:09:54 Is patient on blood thinner?No 14:09:55 Patient diabetic? Yes. 14:09:56 If diabetic: On Metformin? Yes 14:09:59 If on Metformin: Last Dose? 01/02/2018 14:10:03 Previous problem with sedation/anesthesia? No ? 14:10:04 Snore? Yes 14:10:04 Sleep apnea? No 14:10:05 Deviated septum? No 14:10:06 Opens mouth fully? Yes 14:10:06 Sticks out tongue? Yes 14:10:07 Airway obstruction? No ? 14:10:10 Dentures? No ? 14:10:18 Pre procedure: right dorsailis pedis pulse 2+ Normal; easily identifiable; not easily obliterated 14:10:20 Patient pain scale 0/10 ?. 14:10:26 IV patent on arrival in left wrist with 0.9% NaCl at O. 14:10:35 Right groin area was prepped with chlora-prep and draped in sterile fashion 14:10:37 Alarms reviewed by R. N. 14:10:37 Sharps counted by scrub and verified by R.N. 14:10:39 Use device set Femoral Dx 14:10:40 Bag Decanter (2002) opened to sterile field. 14:10:41 ACIST Syringe (58272) opened to sterile field. 14:10:41 Medline Cath Pack ([id number]) opened to sterile field. 14:10:42 ACIST Manifold (33984) opened to sterile field. 14:10:43 ACIST Hand Control (66782) opened to sterile field. 14:10:43 DIAGNOSTIC Multipack 5Fr catheter set (RO7035) opened to sterile field. 14:10:44 Tegaderm 4 x 4 (1626W) opened to sterile field. 14:10:45 SHEATH Prelude 5Fr 0.035 (FYC-5V-74-035) opened to sterile field. 14:10:46 DIAGNOSTIC WIRE .035 260cm J wire (502529) opened to sterile field. 14:11:28 0.9% NaCl 100 ml/hr I.V. was administered by Ellie Salazar RN; used for procedure; 14:11:35 Oxygen 2 l/min etCO2 Nasal cannula was administered by Ellie Salazar RN; used for procedure; 14:11:40 Lidocaine 2% 20ml vial added to field was administered by Emile Lancaster MD; for local anesthetic; 14:11:47 Heparin Flush Bag (1000units/500ml NS) 2 bags added to field was administered by Emile Lancaster MD; used for procedure; 14:12:17 Zero performed for pressure channel P1 14:15:06 --------ALL STOP TIME OUT------ 14:15:07 Final Timeout: patient, procedure, and site verified with staff and physician. All members of the team are in agreement. 14:15:23 Right groin site verified by team. 14:15:40 Physical assessment completed. ASA score P 2 - A patient with mild systemic disease as per Emile Lancaster MD. 14:15:46 Versed 2 mg I.V. was administered by Ellie Salazar RN; for sedation; 14:15:46 Sedation plan: IV Moderate Sedation Medication:Versed, Fentanyl 14:15:55 Fentanyl 50 mcg I.V. was administered by Ellie Salazar RN; for sedation; 14:18:33 Procedure started. 14:19:10 Local anesthetic to right femoral artery with Lidocaine 2% by Emile Lancaster MD.INITIAL ACCESS ONLY 14:19:25 A 5 Fr sheath was inserted into the Right Femoral artery 14:19:35 Zero performed for pressure channel P1 14:20:22 Versed 2 mg I.V. was administered by Ellie Salazar RN; for sedation; 14::27 Fentanyl 50 mcg I.V. was administered by Ellie Salazar RN; for sedation; 14:20:34 A MULTIPACK Pigtail 5 Fr catheter was advanced over the wire and used for Procedure. 14:20:50 LV gram done using CALABRESE 14::54 Injector settings: Ml/sec: 10, Volume: 20, 14:20:55 LV hemodynamics recorded. 14:20:59 EF : 50 % 14:21:01 Catheter exchanged over wire. 14:21:09 A MULTIPACK JL 4.0 5Fr catheter was advanced over the wire and used for Procedure. 14:21:31 LCA angiography performed. 14:21:35 Catheter exchanged over wire. 14:22:34 RCA angiography performed. 14:23:44 Heparin Bolus 4000 units I.V. was administered by Ellie Salazar RN; for anticoagulation; verified with Dr. Lancaster 14:25:00 Sheath upsized to a 6 Fr Short. 14:25:07 Integrilin (Bolus 2mg/ml) 6.8 ml was administered by Ellie Salazar RN; for anticoagulation; wasted 3.2 mL 14:25:16 Catheter removed. 14:25:17 INFLATOR Merit BasixCompak (TP4879) opened to sterile field. 14:25:18 [place] IVUS Catheter (21735V) opened to sterile field. 14:25:29 SHEATH 6FR [place] (YVJ459) opened to sterile field. 14:25:35 GUIDE 6FR XBC 3.5 (68080037) opened to sterile field. 14:25:43 CHOICE PT Extra Support 182cm wire ([id number]) opened to sterile field. 14:25:50 6 Fr xbc3.5 guide catheter was inserted over the wire 14:25:54 chocie pt es wire advanced. 14:25:59 IVUS catheter advanced over wire. 14:26:28 IVUS pass to LAD lesion performed. 14::29 IVUS catheter removed over wire. 14::43 Wire redirected to cx. 14::53 Wire advanced across lesion. 14:28:11 IVUS catheter advanced over wire. 14:28:12 Plavix 600 mg P.O. was administered by Ellie Salazar RN; for antiplatelet therapy; 14:28:13 IVUS pass to Circ lesion performed. 14:28:14 IVUS catheter removed over wire. 14:28:32 Place stent Inflation Number: 1 A INTEGRITY 4.0 x 18 stent ([id number]) was prepped and advanced across the Prox CX. The stent was deployed at 15 [place] for 0:10 (min:sec). 14:33:44 EXOSEAL 6Fr (EX600) opened to sterile field. 14:33:49 A MULTIPACK 3DRC 5Fr catheter was advanced over the wire and used for Procedure. 14:33:58 Stent balloon re-inserted over wire. 14:33:59 Wire removed. 14:34:01 Guide catheter removed. 14:35:00 Sheath removed intact; hemostasis achieved with Exoseal to the Right Femoral artery. 14:35:08 Procedure ended.(Physican Out) 14:35:14 Fluoroscopy time 02.70 minutes. 14:35:18 Flurop Dose total: 373 14:35:18 Fluoroscopy dose: 373 mGy 14:35:35 Contrast amount:Isovue 300 66ml. 14:35:37 Sharps counted by scrub and verified by R.N. 14:35:38 Insertion/operative site no bleeding no hematoma. 14:35:40 Post-op/insertion site Right Femoral artery dressed using a 4 x 4 and Tegaderm. 14:35:45 Post right femoral artery:stable, soft, clean and dry 14:35:49 Post-procedure physical assessment completed. ASA score P 2 - A patient with mild systemic disease as per Emile Lancaster MD. 14:35:51 Post procedure rhythm: unchanged. 14:35:53 Estimated blood loss: 10 ml 14:35:54 Post procedure instruction explained to patient.Patient verbalizes understanding. 14:35:54 Patient needs reinforcement of post procedure teaching. 14:36:15 Procedure type changed to Cath procedure, Diagnostic procedure, LHC, LHC w/Coronaries, FFR/IVUS, Intra-Coronary IVUS Initial, Intra-Coronary IVUS Additional, PCI procedure, Coronary Stent, Coronary Stent Initial 14:40:38 Procedure and supply charges have been captured, reviewed, submitted and are correct. 14:40:40 Procedure Complication : No complications 14:40:43 Vital chart was stopped 14:40:43 See physician's report for complete and final results. 14:40:45 Report given to Pre/Post Procedure Room. 14:40:46 Patient transfered to Pre/Post Procedure Room with Stretcher. 14:40:48 Procedure ended. 14:40:48 Full Disclosure recording stopped 14:41:01 End room use (Document Last) Intervention Summary Intervention Notes Time ActionType Lesion and Equipment Action# Pressure Duration Attributes Used 14:28:32 Place stent Prox CX INTEGRITY 1 15 00:10 4.0 x 18 stent ([id number]) Device Usage Item Name Manufacture Quantity Catalog Number Hospital Part Current M inimal Lot# / Charge Number Stock Stock Serial# Code Bag Decanter Microtek 1 [id number] 30636 [id number] 5 (2001S) Medical Inc. ACIST Syringe Acist 1 13575 425653 349693 257437 2 0 (85187) Medical Systems Inc Medline Cath Medline 1 [id number] 471347 26288 349404 5 Pack ([id number]) ACIST Manifold Acist 1 15862 071729 819768 346798 5 (70397) Medical Systems Inc ACIST Hand Acist 1 74765 482594 514456 055447 5 Control (29683) [employer] Inc DIAGNOSTIC Cardinal 1 NH8828 368832 50853 144135 3 0 Multipack 5Fr Health catheter set (JO3497) Tegaderm 4 x 4 3M 1 1626W 048643 280418 031976 5 (1626W) SHEATH Prelude Merit 1 RBG-7J-94-035 029031 927653 377063 5 5Fr 0.035 Medical (OSH-9Z-45-035) DIAGNOSTIC WIRE [facility] [place] 1 409254 249940 482899 015061 3 0 .035 260cm J wire (375972) MULTIPACK Cardinal 1 612813 5 Pigtail 5 Fr Health catheter MULTIPACK JL Cardinal 1 008699 5 4.0 5Fr Health catheter INFLATOR Merit Merit 1 AI5051 849121 167171 407366 1 5 [facility] (PM8903) [place] 1 76460R 596164 769266 911652 8 [place] IVUS Catheter (90400Y) SHEATH 6FR Terumo 1 MGX788 846947 931415 103276 4 0 [place] (MTA768) GUIDE 6FR XBC Cardinal 1 [id number] 694619 07902 113673 5 3.5 ([id number]) Health CHOICE PT Extra [place] 1 [id number] 906946 787257 888813 5 Support 182cm Scientific wire ([id number]) INTEGRITY 4.0 x Medtronic 1 [id number] 897846 729998 149954 5 [id number] 18 stent ([id number]) EXOSEAL 6Fr Cardinal 1 EX600 861450 720781 955891 1 0 (EX600) Health MULTIPACK 3DRC Cardinal 1 633583 5 5Fr catheter Health Signature Audit [place] Stage Time Signature Unsigned Intra-Procedure 01/04/2018 Erick Whitaker 2:41:35 PM RT(R) Signatures Monitor : Erick Whitaker RT Signature : Date : Time : [id number] [place] [address]
[~2018-01-04 09:48] MED LIST: LOTREL 10/20 CA1 CAP PO; NEXIUM40 MG PO; NIASPAN500 MG PO; OMEPRAZOLE20 M1 PO; PLAVIX75 MG PO
[2018-01-04] MEDS ORDERED: GLUCOPHAGE500 MG PO (10:11)
[2018-01-04] MEDS ORDERED: HYDROCHLOROTHIA25 MG PO (10:11)
[2018-01-04] MEDS ORDERED: HCTZ25 MG PO (10:11)
[2018-01-04 10:35] VITALS: BP 125/63; Ht 167.6 cm; Wt 72.7 kg
[2018-01-04 10:46] LABS: HEMATOCRIT 36.6 % (36.0-48.0); HEMOGLOBIN 12.4 g/dL (12-16); LYMPHOCYTES 26.5 % (15-50); MCH 29.7 pg (26.0-34.0); MCHC 33.9 g/dL (31.0-37.0); MCV 87.8 fL (80.0-100.0); MEAN PLATELET VOLUME 9.2 fL (7.4-10.4); NEUTROPHILS 66.1 % (40-80); PLATELET COUNT 196 10x3/uL (130-400); RBC 4.17 10x6/uL (4.00-5.40); RDW 12.5 % (11.5-14.5); WBC 7.2 10x3/uL (4.8-10.8)
[2018-01-04 10:55] LABS: CALC OSMOLALITY 278 mosm/kg (275-300); CALCIUM 8.8 mg/dL (8.5-10.1); CARBON DIOXIDE 22.2 mmol/L (21.0-32.0); CHLORIDE - SERUM 103 mmol/L (98-107); CREATININE - SERUM 0.6 mg/dL (0.6-1.3); GLUCOSE 123 mg/dL (74-106); SODIUM 139 mmol/L (136-145); UREA NITROGEN 12 mg/dL (7-18); eGFR NON AFRICAN AMERICAN > 90 mL/min (90-120)
[2018-01-04] MEDS ORDERED: PLAVIX75 MG PO (14:58)
[2018-01-04] MEDS ORDERED: BAYER CHEWABLE81 MG PO (14:58)
== END 2018-01-04 18:35 | disposition home or self-care (01) ==
LOC: D.CATH 09:48
PROVIDERS: Internal Medicine Interventional Cardiology
DX: I25.110 Atherosclerotic heart disease of native coronary artery with unstable angina pectoris (principal); R94.39 Abnormal result of other cardiovascular function study